=== PATIENT | female | born 1990 | race Caucasian/White ===

== ENCOUNTER → 2017-12-04 | Outpatient (CLI) | payer OTHER ==
--- NOTE | 2017-12-04 20:12 | Diagnostic Imaging Report ---
INDICATION: Left breast pain and palpable abnormality. TECHNIQUE: Multiple real-time grayscale images were obtained over the 12 o'clock to 3 o'clock position of the left breast as well as the left axilla. FINDINGS: There is no evidence of a discrete solid or cystic mass. There is no ductal ectasia. IMPRESSION: Negative left breast ultrasound. Dictated by: Dictated on workstation # [id number]
== END ==
LOC: RAD 11:52
PROVIDERS: ATTEND Nurse Practitioner Family
DX: N64.4 Mastodynia (principal); R14.0 Abdominal distension (gaseous); R10.2 Pelvic and perineal pain; Z80.3 Family history of malignant neoplasm of breast
CPT/HCPCS: 76642